=== PATIENT | male | born 1960 | race Caucasian/White ===

== ENCOUNTER 2019-07-26 19:24 | Emergency (ER) | payer BC ==
[2019-07-26 19:59] VITALS: BP 133/93
--- NOTE | 2019-07-26 20:03 | UC ---
Skin Complaint HPI - HPI Summary HPI Summary: 59-year-old male who noted a tick bite to his left hip area. He's unsure how long the tick had been on but thinks it may been a couple of days. - History of Current Complaint Chief Complaint: UCSkin Time Seen by Provider: 07/26/19 20:00 Stated Complaint: TICK Hx Obtained From: Patient Onset/Duration: Gradual Onset Skin Exposure Onset/Duration: Hours Ago Timing: Constant Onset Severity: Mild Current Severity: None Pain Intensity: 0 Location: Other - Left hip Character: Redness Aggravating Factor(s): Nothing Alleviating Factor(s): Nothing Associated Signs & Symptoms: Positive: Negative - Allergy/Home Medications Allergies/Adverse Reactions: Allergies Allergy/AdvReac Type Severity Reaction Status Date / Time naproxen [From Aleve] Allergy Intermediate Nausea And Verified 07/26/19 19:59 Vomiting Home Medications: Home Medications metFORMIN* [Glucophage 500 MG TAB *] 500 mg PO DAILY 07/26/19 [History Confirmed 07/26/19] PMH/Surg Hx/FS Hx/Imm Hx Previously Healthy: Yes - Surgical History Surgical History: None - Family History Known Family History: Positive: Non-Contributory - Social History Occupation: Employed Full-time Alcohol Use: Rare Substance Use Type: None Smoking Status (MU): Never Smoked Tobacco Review of Systems All Other Systems Reviewed And Are Negative: Yes Skin: Positive: Other - Small red area where the tick was embedded in his left hip. Is Patient Immunocompromised?: No Physical Exam Triage Information Reviewed: Yes Appearance: Well-Appearing, No Pain Distress, Well-Nourished Vital Signs: Initial Vital Signs Temp 98.4 F 07/26/19 19:49 Pulse 85 07/26/19 19:49 Resp 16 07/26/19 19:49 BP 133/93 07/26/19 19:49 Pulse Ox 97 07/26/19 19:49 Vital Signs Reviewed: Yes Skin: Positive: Other - He has a red circular area on left hip where tick was embedded. The tick is no longer there. Course/Dx - Course Course Of Treatment: The patient was given a prescription for doxycycline 200 mg by mouth to take now. He is to follow-up with his primary care provider if he develops any fever , chills, body aches or rashes. - Diagnoses Provider Diagnosis: Tick bite Discharge ED - Sign-Out/Discharge Documenting (check all that apply): Patient Departure All imaging exams completed and their final reports reviewed: No Studies - Discharge Plan Condition: Good Disposition: HOME Prescriptions: DOXYcycline CAP(*) [DOXYcycline 100MG CAP(*)] 200 mg PO DAILY 1 Days #2 cap Patient Education Materials: Tick Bite (ED) Referrals: Amarjit Green MD [Primary Care Provider] - Additional Instructions: Follow-up with your primary care provider if you develop any fever, chills, body aches or rash. - Billing Disposition and Condition Condition: GOOD Disposition: Home - Attestation Statements Provider Attestation: Per institutional requirements, I have reviewed the chart, however, I was not consulted specifically or made aware of this patient by the midlevel provider. I did not personally evaluate, interact with , or disposition this patient.
== END 2019-07-26 20:10 | disposition home or self-care (01) ==
LOC: UCEAST 19:24
DX: S70.262A Insect bite (nonvenomous), left hip, initial encounter (principal); Z88.8 Allergy status to other drugs, medicaments and biological substances; W57.XXXA Bitten or stung by nonvenomous insect and other nonvenomous arthropods, initial encounter; Y92.9 Unspecified place or not applicable
CPT/HCPCS: 99212; G0463